=== PATIENT | male | born 1965 | race Caucasian/White ===

== ENCOUNTER 2016-09-02 09:53 | Emergency (ER) | payer SELFPAY ==
[~2016-09-02] VITALS: Ht 185.4 cm; Wt 135.2 kg
[~2016-09-02 09:53] MED LIST: AZIT250T PO; CYCL10TA2 PO; HYDR-971 PO; PRED20TA PO; PROAIR HFA8.5 GM INH
[2016-09-02] MEDS ORDERED: IPRATRPIUM/ALBUTEROL 0.5/2.5MG 3 ML NEBU. NEB ONE (10:00)
--- NOTE | 2016-09-02 10:43 | RAD ---
Portable chest, 09/02/2016: History: Chest pain Comparison is made to a study from 11/05/2015. The heart size and pulmonary vascularity are normal. No pulmonary infiltrates are seen. There is no evidence of pleural fluid. IMPRESSION: No acute cardiopulmonary abnormality is detected.
[2016-09-02 10:55] LABS: BASO # 0.1 x10^3/uL (0.0-0.2); BASO % 1 % (0-3); EOS % 3 % (0-3); HEMATOCRIT 46.2 % (39.0-53.0); HEMOGLOBIN 15.3 g/dL (13.0-17.5); LYMPH # 2.6 x10^3/uL (1.0-4.8); LYMPH % 34 % (24-48); MEAN CORPUSCULAR HEMOGLOBIN 29 pg (25-35); MEAN CORPUSCULAR HGB CONC 33 g/dL (31-37); MEAN CORPUSCULAR VOLUME 87 fL (79-100); MONO % 7 % (0-9); NEUT % 56 % (31-73); PLATELET COUNT 259 x10^3/uL (140-400); WHITE BLOOD COUNT 7.7 x10^3/uL (4.0-11.0)
[2016-09-02 10:59] LABS: CREATININE 0.8 mg/dL (0.7-1.3); GFR 102.7; POTASSIUM 4.5 mmol/L (3.5-5.1)
[2016-09-02 11:06] LABS: ALBUMIN 3.7 g/dL (3.4-5.0); DIRECT BILIRUBIN 0.1 mg/dL (0.0-0.2); TOTAL BILIRUBIN 0.6 mg/dL (0.2-1.0); TOTAL PROTEIN 6.8 g/dL (6.4-8.2)
--- NOTE | 2016-09-02 11:50 | EKG ---
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
[2016-09-02] MEDS ORDERED: PRED50TA PO (12:48)
[2016-09-02] MEDS ORDERED: PROAIR HFA8.5 GM INH (12:48)
--- NOTE | 2016-09-02 12:52 | PHYS DOC ---
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 He feels like he may have bronchitis. He denies having chest pain however he does have body aches. His been present for one week. It is nonradiating. Worse with exertion and without alleviating factors. Review of systems is negative for chest pain abd pain nausea vomiting. Negative for fevers or chills. All other review of systems is negative unless otherwise noted in history of present illness. Review of Systems Review of Systems SEE ABOVE. Current Medications Current Medications Current Medications Medications (Trade) Dose Ordered Sig/Nely Start Time Stop Time Status Last Admin Dose Admin Albuterol/ Ipratropium (Duoneb) 3 ml 1X ONCE 09/02/16 10:00 09/02/16 10:01 DC 09/02/16 10:20 3 ML Allergies Allergies Allergies Coded Allergies Type Severity Reaction Last Updated Verified No Known Drug Allergies 09/02/14 No Physical Exam Physical Exam Constitutional: Well developed, well nourished, non-toxic appearance. HENT: Normocephalic, atraumatic, bilateral external ears normal, oropharynx moist, no oral exudates, nose normal. [] Eyes: PERRLA, EOMI, conjunctiva normal, no discharge. [] Neck: Normal range of motion, no tenderness, supple, no stridor. Cardiovascular:Heart rate regular rhythm, no murmur [] Lungs & Thorax: Patient has wheezing bilaterally. Mild increased work of breathing Abdomen: Bowel sounds normal, soft, no tenderness, no masses, no pulsatile masses. [] Skin: Warm, dry, no erythema, no rash. Back: No tenderness, no CVA tenderness. [] Extremities: No tenderness, no cyanosis, no clubbing, ROM intact, no edema. [] Neurologic: Alert and oriented X 3, normal motor function, normal sensory function, no focal deficits noted. [] Psychologic: Affect normal, judgement normal, mood normal. [] Current Patient Data Vital Signs Vital Signs Date Time Temp Pulse Resp B/P Pulse Ox O2 Delivery O2 Flow Rate FiO2 09/02/16 10:21 Room Air 09/02/16 10:00 97.7 66 30 135/85 93 97.7 Lab Values Laboratory Tests Test 09/02/16 10:00 White Blood Count 7.7x10^3/uL (4.0-11.0) Red Blood Count 5.30x10^6/uL (4.30-5.70) Hemoglobin 15.3g/dL (13.0-17.5) Hematocrit 46.2% (39.0-53.0) Mean Corpuscular Volume 87fL (79-100) Mean Corpuscular Hemoglobin 29pg (25-35) Mean Corpuscular Hemoglobin Concent 33g/dL (31-37) Red Cell Distribution Width 14.0% (11.5-14.5) Platelet Count 259x10^3/uL (140-400) Neutrophils (%) (Auto) 56% (31-73) Lymphocytes (%) (Auto) 34% (24-48) Monocytes (%) (Auto) 7% (0-9) Eosinophils (%) (Auto) 3% (0-3) Basophils (%) (Auto) 1% (0-3) Neutrophils # (Auto) 4.3x10^3uL (1.8-7.7) Lymphocytes # (Auto) 2.6x10^3/uL (1.0-4.8) Monocytes # (Auto) 0.5x10^3/uL (0.0-1.1) Eosinophils # (Auto) 0.2x10^3/uL (0.0-0.7) Basophils # (Auto) 0.1x10^3/uL (0.0-0.2) Sodium Level 140mmol/L (136-145) Potassium Level 4.5mmol/L (3.5-5.1) Chloride Level 105mmol/L (98-107) Carbon Dioxide Level 28mmol/L (21-32) Anion Gap 7 (6-14) Blood Urea Nitrogen 18mg/dL (8-26) Creatinine 0.8mg/dL (0.7-1.3) Estimated GFR (Cockcroft-Gault) 102.7 Glucose Level 114mg/dL (70-99) H Calcium Level 9.0mg/dL (8.5-10.1) Total Bilirubin 0.6mg/dL (0.2-1.0) Direct Bilirubin 0.1mg/dL (0.0-0.2) Aspartate Amino Transferase (AST) 39U/L (15-37) H Alanine Aminotransferase (ALT) 49U/L (16-63) Alkaline Phosphatase 86U/L (46-116) Troponin I Quantitative < 0.017ng/mL (0.000-0.055) BG-Neg-R-Type Natriuretic Peptide 55pg/mL (0-124) Total Protein 6.8g/dL (6.4-8.2) Albumin 3.7g/dL (3.4-5.0) Lipase 216U/L (73-393) Laboratory Tests 09/02/16 10:00 Laboratory Tests 09/02/16 10:00 EKG EKG []EKG shows sinus rhythm with regular rate. Normal intervals. Normal axis. ST segments are congruent. Not suggestive of ACS. Reviewed by myself. Radiology/Procedures Radiology/Procedures [] Course & Med Decision Making Course & Med Decision Making Pertinent Labs and Imaging studies reviewed. (See chart for details) [] 51-year-old male presenting to the emergency department with wheezing for a week with a dry nonproductive cough. Vital signs unremarkable other than increased respiratory effort and respiratory rate. The patient was given DuoNeb in the emergency department and on reevaluation the patient's wheezing improved significantly. Respiratory rate came down. He is breathing comfortably on room air. Otherwise workup was unremarkable including normal CBC chemistry panel and a negative troponin. The patient was subsequent discharged home to follow up with her primary care doctor in 2 days on oral prednisone. Dragon Disclaimer Dragon Disclaimer This electronic medical record was generated, in whole or in part, using a voice recognition dictation system. Departure Departure Impression: Primary Impression: Bronchitis Disposition: 01 HOME, SELF-CARE Condition: STABLE Referrals: NO PCP (PCP) AMANDA JOHNSON MD Patient Instructions: Cough, Adult, Shortness of Breath Additional Instructions: Thank you for allowing us to participate in your care today. Followup with your primary care physician in 3 days if your symptoms do not improve. If you do not have a primary care provider you can ask for a list of our primary care providers. Return to the emergency department you have any new or concerning findings. This should be evaluated by the primary care physician and any necessary consulting services for continued management within a few days after discharge. Return to emergency room if you have any new or concerning symptoms including but not limited to fever, chills, nausea, vomiting, intractable pain, any new rashes, chest pain, shortness of air, uncontrolled bleeding, difficulty breathing, and/or vision loss. Scripts Prednisone 50 Mg [id number] Mg PO DAILY #5 TAB Prov:DEYA JOHNSON MD 09/02/16 Albuterol Sulfate (Proair Hfa Inhaler)8.5 Gm Hfa.aer.ad1 Puff INH PRN Q6HRS PRN SHORTNESS OF BREATH #1 INHALER Prov:DEYA JOHNSON MD 09/02/16 DEYA JOHNSON MD Sep 02, 2016 12:52
[2016-09-02 13:10] VITALS: BP 144/91
== END 2016-09-02 13:15 | disposition home or self-care (01) ==
LOC: ER 09:53
DX: J40 Bronchitis, not specified as acute or chronic (principal); I10 Essential (primary) hypertension; Z86.73 Personal history of transient ischemic attack (TIA), and cerebral infarction without residual deficits
CPT/HCPCS: 36415; 71010; 80048; 80076; 83690; 83880; 84484; 85027; 93005; 94250; 94640; 99285; J7620

== ENCOUNTER 2016-12-25 16:33 | Emergency (ER) | payer SELFPAY ==
[~2016-12-25] VITALS: Ht 185.4 cm; Wt 137.0 kg
[~2016-12-25 16:33] MED LIST changes: +PRED50TA PO
[2016-12-25 16:55] VITALS: BP 166/101
[2016-12-25] MEDS ORDERED: NAPROXEN 500 MG TABLET PO STA (17:26)
[2016-12-25] MEDS ORDERED: HYDROcodone/APAP 5/325MG 1 TAB TABLET PO ONE (18:00)
[2016-12-25] MEDS ORDERED: HYDR-971 PO ×2 (18:02→18:07)
--- NOTE | 2016-12-25 18:03 | PHYS DOC ---
Past Medical History Past Medical History: Bronchitis, CVA, Hypertension Additional Past Medical Histor: CVA in 2007-no residual Past Surgical History: Other Additional Past Surgical Histo: R)ring finger from table saw injury,R)index fused Alcohol Use: None Drug Use: None Adult General Chief Complaint Chief Complaint: KNEE INJURY HPI HPI Patient is a 51 year old male who presents with history of CVA, hypertension, who presents with moderate left knee pain that began this evening. Patient states he was working with his father doing some work on the floor, he states he had kneepads to protect his knee. He states in the process he developed severe knee pain. Patient denies any trauma. Review of Systems Review of Systems Constitutional: Denies fever or chills [] Eyes: Denies change in visual acuity, redness, or eye pain [] HENT: Denies nasal congestion or sore throat [] Respiratory: Denies cough or shortness of breath [] Cardiovascular: No additional information not addressed in HPI [] GI: Denies abdominal pain, nausea, vomiting, bloody stools or diarrhea [] : Denies dysuria or hematuria [] Musculoskeletal: Left knee pain Integument: Denies rash or skin lesions [] Neurologic: Denies headache, focal weakness or sensory changes [] Endocrine: Denies polyuria or polydipsia [] Current Medications Current Medications Current Medications Medications (Trade) Dose Ordered Sig/Nely Start Time Stop Time Status Last Admin Dose Admin Acetaminophen/ Hydrocodone Bitart (Lortab 5/325) 2 tab 1X ONCE 12/25/16 18:00 12/25/16 18:01 DC 12/25/16 17:42 2 TAB Naproxen (Naprosyn) 500 mg 1X STAT 12/25/16 17:26 12/25/16 17:29 DC 12/25/16 17:41 500 MG Allergies Allergies Allergies Coded Allergies Type Severity Reaction Last Updated Verified No Known Drug Allergies 09/02/14 No Physical Exam Physical Exam Constitutional: Well developed, well nourished, no acute distress, non-toxic appearance. [] HENT: Normocephalic, atraumatic, bilateral external ears normal, oropharynx moist, no oral exudates, nose normal. [] Eyes: PERRLA, EOMI, conjunctiva normal, no discharge. [] Neck: Normal range of motion, no tenderness, supple, no stridor. [] Cardiovascular:Heart rate regular rhythm, no murmur [] Lungs & Thorax: Bilateral breath sounds clear to auscultation [] Abdomen: Bowel sounds normal, soft, no tenderness, no masses, no pulsatile masses. [] Skin: Warm, dry, no erythema, no rash. [] Back: No tenderness, no CVA tenderness. [] Extremities: Left today with moderate soft tissue swelling on the anterior aspect. Patient unable to extend the left knee. He is guarding it in a flex position. +2 left pedal pulse. Cap refill less than 2 seconds left lower extremity. Neurologic: Alert and oriented X 3, normal motor function, normal sensory function, no focal deficits noted. [] Psychologic: Affect normal, judgement normal, mood normal. [] Current Patient Data Vital Signs Vital Signs Date Time Temp Pulse Resp B/P (MAP) Pulse Ox O2 Delivery O2 Flow Rate FiO2 12/25/16 17:42 18 98 Room Air 12/25/16 16:55 99.0 93 166/101 (122) 99.0 EKG EKG [] Radiology/Procedures Radiology/Procedures [] Left knee x-rays interpreted by Dr. Lorenzo was noted for probable avulsion of the left patellar tendon. Course & Med Decision Making Course & Med Decision Making Pertinent Labs and Imaging studies reviewed. (See chart for details) Patient is in the ED complaining of left knee pain that began while he was doing some work on the floor kneeling down. He states he had knee pads one. Left knee x-rays interpreted by Dr. Lorenzo was noted for probable avulsion of the left patellar tendon. Patient was placed in an immobilizer by the ED RN, neurovascular exam done by me is normal, cap refill less than 2 seconds. He was provided an orthopedic doctor to follow up with tomorrow. His blood pressure was 166/101 with a heart rate of 93. Patient states he has history of hypertension and used to take blood pressure medicine but he passed out on the medications and his primary care doctor discontinued the medications. He states he does not have medical insurance right now. We provided patient primary care doctors for follow-up and recommended he follows up for his high blood pressure as soon as he can. He has no cardiac or neurological symptoms. Dragon Disclaimer Dragon Disclaimer This electronic medical record was generated, in whole or in part, using a voice recognition dictation system. Departure Departure Impression: Primary Impression: Rupture patellar tendon Additional Impression: Hypertension Disposition: 01 HOME, SELF-CARE Condition: STABLE Referrals: NO PCP (PCP) MIRA PUGH II, MD call the provided orthopedic doctor tomorrow and set up a follow appointment. Patient Instructions: Hypertension, Knee - Patella Problems Additional Instructions: You were seen for left knee pain. Your left knee x-ray shows you have patellar tendon injury. We highly recommend you follow-up with the provided orthopedic doctor by calling the office tomorrow and set up a follow-up appointment. Follow -up with your primary care doctor or doctor from the list provided because your blood pressure is high. You may need to be put on some medicine for blood pressure. Scripts Hydrocodone/Apap 5-325 (NORCO 5-325 TABLET) 1 Each Tablet 1-2 TAB PO Q4-6HRS Y for PAIN, #40 TAB Prov: JOSE MANUEL APRN 12/25/16 Hydrocodone/Apap 5-325 (NORCO 5-325 TABLET) 1 Each Tablet 1-2 TAB PO Q4-6HRS, #20 TAB Prov: JOSE MANUEL APRN 12/25/16 Problem Qualifiers Primary Impression: Rupture patellar tendon Encounter type: initial encounter Laterality: left Qualified Codes: S86.812A - Strain of other muscle(s) and tendon(s) at lower leg level, left leg , initial encounter Additional Impression: Hypertension Hypertension type: unspecified secondary hypertension Qualified Codes: I15.9 - Secondary hypertension, unspecified JOSE MANUEL APRN Dec 25, 2016 18:03
--- NOTE | 2016-12-26 08:21 | RAD ---
Indication pain and swelling. AP oblique and lateral views of the left knee were obtained as well as a sunrise view. There is irregularity at the tibial tubercle. An avulsion injury as might be seen with a patellar tendon injury is not excluded. MRI examination of the knee should be considered. No additional bony finding seen
== END 2016-12-25 18:13 | disposition home or self-care (01) ==
LOC: ER 16:33
DX: S86.812A Strain of other muscle(s) and tendon(s) at lower leg level, left leg, initial encounter (principal); I15.9 Secondary hypertension, unspecified; Z86.73 Personal history of transient ischemic attack (TIA), and cerebral infarction without residual deficits; X58.XXXA Exposure to other specified factors, initial encounter; Y93.89 Activity, other specified; Y92.89 Other specified places as the place of occurrence of the external cause; Y99.8 Other external cause status
CPT/HCPCS: 29505; 73564; 99284-25

== ENCOUNTER 2017-04-10 10:44 | Emergency (ER) | payer SELFPAY ==
[~2017-04-10] VITALS: Ht 185.4 cm; Wt 137.0 kg
[2017-04-10 10:50] VITALS: BP 129/95
[2017-04-10] MEDS ORDERED: methylPREDNISolone SOD SUCC PF 125 MG/2 ML VIAL. IV ONE (11:15)
[2017-04-10] MEDS ORDERED: HYDROcodone/APAP 5/325MG 1 TAB TABLET PO ONE (11:15)
--- NOTE | 2017-04-10 11:19 | RAD ---
Chest, 2 views, 04/10/2017: History: Cough Comparison is made to a study from 09/02/2016. The heart size and pulmonary vascularity are normal. No pulmonary infiltrates are seen. There is no evidence of pleural fluid. IMPRESSION: No acute cardiopulmonary abnormality is detected.
[2017-04-10] MEDS ORDERED: PRED20TA PO (11:25)
[2017-04-10] MEDS ORDERED: AZIT250T PO (11:25)
[2017-04-10] MEDS ORDERED: PROAIR HFA8.5 GM INH (11:25)
--- NOTE | 2017-04-10 11:25 | PHYS DOC ---
Past Medical History Past Medical History: Bronchitis, CVA, Hypertension Additional Past Medical Histor: CVA in 2007-no residual Past Surgical History: Other Additional Past Surgical Histo: R)ring finger from table saw injury,R)index fused; R shoulder Alcohol Use: None Drug Use: None Adult General Chief Complaint Chief Complaint: COUGH HPI HPI Patient is a 51 year old male presents the ED complaining of cough 3 days. Other sick contacts at home. Associated symptoms include subjective fever, sore throat, rhinorrhea. Denies chest pain, shortness of breath, dizziness, weakness , body aches, nausea/vomiting or abdominal pain. Review of Systems Review of Systems Constitutional: Denies fever or chills [] Eyes: Denies change in visual acuity, redness, or eye pain [] HENT: Complains of nasal congestion or sore throat [] Respiratory: Complains of cough. Denies shortness of breath [] Cardiovascular: No additional information not addressed in HPI [] GI: Denies abdominal pain, nausea, vomiting, bloody stools or diarrhea [] : Denies dysuria or hematuria [] Musculoskeletal: Denies back pain or joint pain [] Integument: Denies rash or skin lesions [] Neurologic: Denies headache, focal weakness or sensory changes [] Endocrine: Denies polyuria or polydipsia [] Current Medications Current Medications Current Medications Medications (Trade) Dose Ordered Sig/Nely Start Time Stop Time Status Last Admin Dose Admin Acetaminophen/ Hydrocodone Bitart (Lortab 5/325) 1 tab 1X ONCE 04/10/17 11:15 04/10/17 11:16 DC 04/10/17 11:24 1 TAB Albuterol/ Ipratropium (Duoneb) 3 ml 1X ONCE 04/10/17 11:45 04/10/17 11:46 DC 04/10/17 11:47 3 ML Methylprednisolone Sodium Succinate (SOLU-Medrol 125MG VIAL) 125 mg 1X ONCE 04/10/17 11:30 04/10/17 11:31 DC 04/10/17 11:29 125 MG Allergies Allergies Allergies Coded Allergies Type Severity Reaction Last Updated Verified No Known Drug Allergies 09/02/14 No Physical Exam Physical Exam Constitutional: Well developed, well nourished, no acute distress, non-toxic appearance. [] HENT: Normocephalic, atraumatic, bilateral external ears normal, oropharynx moist, no oral exudates, nose normal. [] Eyes: PERRLA, EOMI, conjunctiva normal, no discharge. [] Neck: Normal range of motion, no tenderness, supple, no stridor. [] Cardiovascular:Heart rate regular rhythm, no murmur [] Lungs & Thorax: Bilateral breath sounds clear to auscultation [] Abdomen: Bowel sounds normal, soft, no tenderness, no masses, no pulsatile masses. [] Skin: Warm, dry, no erythema, no rash. [] Back: No tenderness, no CVA tenderness. [] Extremities: No tenderness, no cyanosis, no clubbing, ROM intact, no edema. [] Neurologic: Alert and oriented X 3, normal motor function, normal sensory function, no focal deficits noted. [] Psychologic: Affect normal, judgement normal, mood normal. [] Current Patient Data Vital Signs Vital Signs Date Time Temp Pulse Resp B/P (MAP) Pulse Ox O2 Delivery O2 Flow Rate FiO2 04/10/17 11:47 96 Room Air 04/10/17 11:45 78 18 04/10/17 10:50 98.1 129/95 (106) 98.1 EKG EKG [] Radiology/Procedures Radiology/Procedures PROCEDURE: CHEST PA & LATERAL Chest, 2 views, 04/10/2017: History: Cough Comparison is made to a study from 09/02/2016. The heart size and pulmonary vascularity are normal. No pulmonary infiltrates are seen. There is no evidence of pleural fluid. IMPRESSION: No acute cardiopulmonary abnormality is detected.[] Course & Med Decision Making Course & Med Decision Making Pertinent Labs and Imaging studies reviewed. (See chart for details) []Discussed imaging with patient. Patient improved after breathing treatment. Vital stable, no acute distress. Discussed follow-up with ECP this week.. Discussed reasons to return to the ED. Patient understands and agrees with plan. Dragon Disclaimer Dragon Disclaimer This electronic medical record was generated, in whole or in part, using a voice recognition dictation system. Departure Departure Impression: Primary Impression: Bronchitis Disposition: 01 HOME, SELF-CARE Condition: IMPROVED Referrals: NO PCP (PCP) EVY GRUBBS MD Patient Instructions: Bronchitis Scripts Albuterol Sulfate (PROAIR HFA INHALER) 8.5 Gm Hfa.aer.ad 1 PUFF INH PRN Q6HRS Y for SHORTNESS OF BREATH, #1 INHALER 0 Refills Prov: JULIO POWERS 04/10/17 Prednisone (PREDNISONE) 20 Mg Tablet 2 TAB PO DAILY, #10 TAB Prov: JULIO POWERS 04/10/17 Azithromycin (ZITHROMAX) 250 Mg Tablet 250 MG PO DAILY for ANTI-BIOTIC, #6 TAB 0 Refills 2 tablets today then 1 tablet daily until gone Prov: JULIO POWERS 04/10/17 JULIO POWERS Apr 10, 2017 11:25
[2017-04-10] MEDS ORDERED: methylPREDNISolone SOD SUCC PF 125 MG/2 ML VIAL. IM ONE (11:30)
[2017-04-10] MEDS ORDERED: IPRATRPIUM/ALBUTEROL 0.5/2.5MG 3 ML NEBU. NEB ONE (11:45)
== END 2017-04-10 12:07 | disposition home or self-care (01) ==
LOC: ER 10:44
DX: J40 Bronchitis, not specified as acute or chronic (principal); I10 Essential (primary) hypertension; Z86.73 Personal history of transient ischemic attack (TIA), and cerebral infarction without residual deficits
CPT/HCPCS: 71020; 94250; 94640; 96372; 99284; J2930; J7620

== ENCOUNTER → 2017-07-27 | Outpatient (CLI) | payer BC | END | disposition home or self-care (01) | LOC: KCIC 09:52 | DX: J20.9 Acute bronchitis, unspecified (principal) | CPT/HCPCS: 71046 ==

== ENCOUNTER → 2017-10-10 | Outpatient (CLI) | payer BC | END | disposition home or self-care (01) | LOC: KCIC 08:54 | DX: S33.120A Subluxation of L2/L3 lumbar vertebra, initial encounter (principal); X58.XXXA Exposure to other specified factors, initial encounter; Y93.89 Activity, other specified; Y92.89 Other specified places as the place of occurrence of the external cause; Y99.8 Other external cause status | CPT/HCPCS: 72110 ==

== ENCOUNTER 2018-04-01 07:21 | Emergency (ER) | payer BC ==
[~2018-04-01] VITALS: Ht 185.4 cm; Wt 134.3 kg
[2018-04-01 07:29] VITALS: BP 129/95
--- NOTE | 2018-04-01 08:15 | RAD ---
AP chest. HISTORY: Cough, short of air, chest pain AP view was taken of the chest. The patient's taken a poor inspiration. There is mild linear atelectasis in the right lung without other infiltrates. There is no effusion. Heart is normal in size. IMPRESSION: 1. Mild the right linear atelectasis. 2. No other infiltrates. Electronically signed by: Vimal Bansal MD (04/01/2018 8:12 AM) [facility]
[2018-04-01] MEDS ORDERED: BENZ100C PO (08:18)
[2018-04-01] MEDS ORDERED: PROAIR HFA8.5 GM INH (08:18)
--- NOTE | 2018-04-01 08:26 | PHYS DOC ---
Past Medical History Past Medical History: Bronchitis, CVA, Hypertension, Pneumonia Additional Past Medical Histor: CVA in 2006-no residual Past Surgical History: Other Additional Past Surgical Histo: R)ring finger from table saw injury,R)index fused; R shoulder Alcohol Use: None Drug Use: None Adult General Chief Complaint Chief Complaint: MULTIPLE COMPLAINTS [facility] HPI Patient is a 52 year old m with cc of sore throat cough no fever ribs hurt with coughing noted. x three days. no relief with home agents. similar to last time he had bronchitis. he would ilke note off work tomorrow. Review of Systems Review of Systems Constitutional: Denies fever or chills [] Eyes: Denies change in visual acuity, redness, or eye pain [] Cardiovascular: No additional information not addressed in HPI [] GI: Denies abdominal pain, nausea, vomiting, bloody stools or diarrhea [] Integument: Denies rash or skin lesions [] Neurologic: Denies headache, focal weakness or sensory changes [] Endocrine: Denies polyuria or polydipsia [] All other systems were reviewed and found to be within normal limits, except as documented in this note. Allergies Allergies Allergies Coded Allergies Type Severity Reaction Last Updated Verified No Known Drug Allergies 09/02/14 No Physical Exam Physical Exam Constitutional: Well developed, well nourished, no acute distress, non-toxic appearance. [] HENT: Normocephalic, atraumatic, bilateral external ears normal, oropharynx moist, no oral exudates, nose normal. [] Eyes: PERRLA, EOMI, conjunctiva normal, no discharge. [] Neck: Normal range of motion, no tenderness, supple, no stridor. [] Cardiovascular:Heart rate regular rhythm, no murmur [] Lungs & Thorax: reactive cough no overt wheezing Abdomen: Bowel sounds normal, soft, no tenderness, no masses, no pulsatile masses. [] Skin: Warm, dry, no erythema, no rash. [] Back: No tenderness, no CVA tenderness. [] Extremities: No tenderness, no cyanosis, no clubbing, ROM intact, no edema. [] Neurologic: Alert and oriented X 3, normal motor function, normal sensory function, no focal deficits noted. [] Psychologic: Affect normal, judgement normal, mood normal. [] Current Patient Data Vital Signs Vital Signs Date Time Temp Pulse Resp B/P (MAP) Pulse Ox O2 Delivery O2 Flow Rate FiO2 04/01/18 07:29 98.3 64 20 129/95 (106) 97 Room Air 98.3 EKG EKG [] Radiology/Procedures Radiology/Procedures [] Impressions: my interpretation negative acute. poor inspiration Course & Med Decision Making Course & Med Decision Making Pertinent Labs and Imaging studies reviewed. (See chart for details) sore throat cough reactive cough cxr negative. vitals normal suspect bronchitis 3 day duration tx albuterol tessalon. Dragon Disclaimer Dragon Disclaimer This electronic medical record was generated, in whole or in part, using a voice recognition dictation system. Departure Departure Impression: Primary Impression: Bronchitis Disposition: HOME, SELF-CARE Condition: IMPROVED Referrals: LEXX SEALS MD (PCP) Patient Instructions: Bronchitis, [id number] Scripts Albuterol Sulfate (PROAIR HFA INHALER) 8.5 Gm Hfa.aer.ad 1 PUFF INH PRN Q6HRS PRN for SHORTNESS OF BREATH, #1 INHALER 0 Refills Prov: JASSI WHITLEY MD 04/01/18 Benzonatate (TESSALON PERLE) 100 Mg Capsule 1 CAP PO TID PRN for COUGH, #21 CAP Prov: JASSI WHITLEY MD 04/01/18 JASSI WHITLEY MD Apr 01, 2018 08:26
== END 2018-04-01 08:23 | disposition home or self-care (01) ==
LOC: ER 07:21
DX: J40 Bronchitis, not specified as acute or chronic (principal); I10 Essential (primary) hypertension; Z86.73 Personal history of transient ischemic attack (TIA), and cerebral infarction without residual deficits
CPT/HCPCS: 71045; 99283

== ENCOUNTER → 2018-08-29 | Outpatient (CLI) | payer BC ==
[~2018-08-29] MED LIST changes: +ALBU2.5V8 INH; +BENZ100C PO; +CODE10LI PO; +HYDR-3164 PO; -HYDR-971 PO; -PROAIR HFA8.5 GM INH
--- NOTE | 2018-08-29 15:48 | RAD ---
Examination: Ultrasound testis HISTORY: History of left testicular pain, swelling COMPARISON: None available FINDINGS: The right testis measures 4.9 x 2.2 x 2.5 cm. The left testis measures 4.9 x 2.8 x 2.4 cm. Varicocele identified inferior lateral to the left testis. Blood flow identified in the right and left testis. Tiny bilateral hydrocele. IMPRESSION: 1. Varicocele identified inferior lateral to the left testis. Electronically signed by: Eulalio Lang MD (08/29/2018 3:45 PM) [place] [id number]
== END | disposition home or self-care (01) ==
LOC: US 14:03
PROVIDERS: ATTEND Physician Assistant Medical
DX: N45.2 Orchitis (principal); I86.1 Scrotal varices; N43.3 Hydrocele, unspecified
CPT/HCPCS: 76870

== ENCOUNTER 2018-10-13 19:47 | Emergency (ER) | payer BC ==
[~2018-10-13] VITALS: Ht 185.4 cm; Wt 136.1 kg
[~2018-10-13 19:47] MED LIST changes: -CODE10LI PO
[2018-10-13] MEDS ORDERED: IPRATRPIUM/ALBUTEROL 0.5/2.5MG 3 ML NEBU. NEB ONE (20:30)
--- NOTE | 2018-10-13 20:33 | PHYS DOC ---
Past Medical History Past Medical History: Bronchitis, CVA, Hypertension, Pneumonia Additional Past Medical Histor: CVA in 2007-no residual Past Surgical History: Other Additional Past Surgical Histo: R)ring finger from table saw injury,R)index fused; R shoulder Alcohol Use: None Drug Use: None Adult General Chief Complaint Chief Complaint: COUGH HPI HPI Patient is a 53 year old male who presents with a headache, a cough, a sore throat, and nasal congestion. Patient states that he has had a constant headache for the past three days which he describes as a throbbing sensation located in his bilateral temporal regions. Patient states that light makes his headache worse and nothing makes it better. Patient currently rates his headache to be 5/10. Patient also reports nausea and nonbilious, nonbloody vomiting for the past few days, but none today. Patient reports a nonproductive cough, nasal congestion, sinus pressure located around his eyes, a sore throat, and a hoarse voice for the past five days. Patient notes that he has been experiencing chest pain and shortness of breath with coughing. Patient did not receive the influenza vaccination this season. Review of Systems Review of Systems Constitutional: Denies fever or chills Eyes: Denies change in visual acuity or redness HENT: Reports nasal congestion and sore throat Respiratory: Denies cough or shortness of breath [] Cardiovascular: No additional information not addressed in HPI [] GI: Denies abdominal pain, nausea, vomiting, bloody stools or diarrhea [] : Denies dysuria or hematuria [] Musculoskeletal: Denies back pain or joint pain [] Integument: Denies rash or skin lesions [] Neurologic: Denies headache, focal weakness or sensory changes [] Endocrine: Denies polyuria or polydipsia [] All other systems were reviewed and found to be within normal limits, except as documented in this note. Current Medications Current Medications Current Medications Medications (Trade) Dose Ordered Sig/Nely Start Time Stop Time Status Last Admin Dose Admin Albuterol/ Ipratropium (Duoneb) 3 ml 1X ONCE 10/13/18 20:30 10/13/18 20:39 DC 10/13/18 20:51 3 ML Dexamethasone Sodium Phosphate (Decadron) 10 mg 1X ONCE 10/13/18 20:45 10/13/18 20:46 DC 10/13/18 20:45 10 MG Ketorolac Tromethamine (Toradol 15mg Vial) 15 mg 1X ONCE 10/13/18 20:45 10/13/18 20:46 DC 10/13/18 20:45 15 MG Ondansetron HCl (Zofran) 4 mg 1X ONCE 10/13/18 20:45 10/13/18 20:46 DC 10/13/18 21:20 4 MG Sodium Chloride 1,000 ml @ 1,000 mls/hr 1X ONCE 10/13/18 20:45 10/13/18 21:44 DC 10/13/18 20:45 1,000 MLS/HR Allergies Allergies Allergies Coded Allergies Type Severity Reaction Last Updated Verified No Known Drug Allergies 09/02/14 No Physical Exam Physical Exam Constitutional: Well developed, well nourished, no acute distress, non-toxic appearance. [] HENT: Normocephalic, atraumatic, bilateral external ears normal, oropharynx moist, no oral exudates, nose normal. [] Eyes: PERRLA, EOMI, conjunctiva normal, no discharge. [] Neck: Normal range of motion, no tenderness, supple, no stridor. [] Cardiovascular:Heart rate regular rhythm, no murmur [] Lungs & Thorax: Bilateral breath sounds clear to auscultation [] Abdomen: Bowel sounds normal, soft, no tenderness, no masses, no pulsatile masses. [] Skin: Warm, dry, no erythema, no rash. [] Back: No tenderness, no CVA tenderness. [] Extremities: No tenderness, no cyanosis, no clubbing, ROM intact, no edema. [] Neurologic: Alert and oriented X 3, normal motor function, normal sensory function, no focal deficits noted. [] Psychologic: Affect normal, judgement normal, mood normal. [] Current Patient Data Vital Signs Vital Signs Date Time Temp Pulse Resp B/P (MAP) Pulse Ox O2 Delivery O2 Flow Rate FiO2 10/13/18 22:39 60 22 125/77 (93) 96 Room Air 10/13/18 20:15 98.2 98.2 Lab Values Laboratory Tests Test 10/13/18 20:57 10/13/18 21:08 Influenza Type A Antigen Negative (NEGATIVE) Influenza Type B Antigen Negative (NEGATIVE) White Blood Count 8.9 x10^3/uL (4.0-11.0) Red Blood Count 5.08 x10^6/uL (4.30-5.70) Hemoglobin 14.9 g/dL (13.0-17.5) Hematocrit 44.7 % (39.0-53.0) Mean Corpuscular Volume 88 fL (79-100) Mean Corpuscular Hemoglobin 29 pg (25-35) Mean Corpuscular Hemoglobin Concent 33 g/dL (31-37) Red Cell Distribution Width 14.4 % (11.5-14.5) Platelet Count 255 x10^3/uL (140-400) Neutrophils (%) (Auto) 58 % (31-73) Lymphocytes (%) (Auto) 32 % (24-48) Monocytes (%) (Auto) 8 % (0-9) Eosinophils (%) (Auto) 2 % (0-3) Basophils (%) (Auto) 1 % (0-3) Neutrophils # (Auto) 5.1 x10^3uL (1.8-7.7) Lymphocytes # (Auto) 2.9 x10^3/uL (1.0-4.8) Monocytes # (Auto) 0.7 x10^3/uL (0.0-1.1) Eosinophils # (Auto) 0.2 x10^3/uL (0.0-0.7) Basophils # (Auto) 0.1 x10^3/uL (0.0-0.2) Sodium Level 140 mmol/L (136-145) Potassium Level 4.0 mmol/L (3.5-5.1) Chloride Level 106 mmol/L (98-107) Carbon Dioxide Level 25 mmol/L (21-32) Anion Gap 9 (6-14) Blood Urea Nitrogen 15 mg/dL (8-26) Creatinine 0.8 mg/dL (0.7-1.3) Estimated GFR (Cockcroft-Gault) 101.9 BUN/Creatinine Ratio 19 (6-20) Glucose Level 107 mg/dL (70-99) H Lactic Acid Level 1.2 mmol/L (0.4-2.0) Calcium Level 8.5 mg/dL (8.5-10.1) Magnesium Level 2.1 mg/dL (1.8-2.4) Total Bilirubin 0.3 mg/dL (0.2-1.0) Aspartate Amino Transferase (AST) 28 U/L (15-37) Alanine Aminotransferase (ALT) 47 U/L (16-63) Alkaline Phosphatase 97 U/L (46-116) Creatine Kinase 222 U/L (39-308) Creatine Kinase MB (Mass) 2.8 ng/mL (0.0-3.6) Creatine Kinase MB Relative Index 1.3 % (0-4) Troponin I Quantitative < 0.017 ng/mL (0.000-0.055) UZ-Qbs-A-Type Natriuretic Peptide 61 pg/mL (0-124) Total Protein 7.1 g/dL (6.4-8.2) Albumin 3.5 g/dL (3.4-5.0) Albumin/Globulin Ratio 1.0 (1.0-1.7) Laboratory Tests 10/13/18 21:08 Laboratory Tests 10/13/18 21:08 EKG EKG @2107 NSR at 73bpm, NO ST elevation, Q wave in I and aVL. Radiology/Procedures Radiology/Procedures PROCEDURE: CHEST PA & LATERAL Chest, PA and Lateral: Technique: PA and lateral views of the chest were obtained. History: Dyspnea, cough 07/27/2017. Comparison: None. Findings: The heart and pulmonary vasculature appear within normal limits. The lungs are clear. The pleural margins are clear. Impression: No acute chest process is seen. Electronically signed by: Eulalio Lang MD (10/13/2018 9:06 PM) [facility] [id number] Course & Med Decision Making Course & Med Decision Making Patient is a 53 year old male who presents for evaluation of a headache, nausea , nonproductive cough, and a sore throat. Pertinent Labs and Imaging studies reviewed. (See chart for details). Patient treated in the ED with 1L Normal Saline, a Duoneb, 10mg Dexamethasone, 15mg Ketorolac, and 4mg Ondansetron. Influenza is negative. No acute abnormalities noted on laboratory results. CXR does not reveal any acute process. Patient stable for discharge with outpatient follow-up with PCP. Discussed findings and plan with patient and family, who acknowledge understanding and agreement. Dragon Disclaimer Dragon Disclaimer This electronic medical record was generated, in whole or in part, using a voice recognition dictation system. Departure Departure Impression: Primary Impression: Bronchitis Disposition: HOME, SELF-CARE Condition: STABLE Referrals: LEXX SEALS MD (PCP) Patient Instructions: Acute Bronchitis, [id number] Scripts Codeine Phosphate/Guaifenesin (Guaifen-Codeine 200-20 mg/10Ml) 10 Ml Liquid 10 ML PO TID PRN PRN for COUGH, #100 LIQUID Prov: EVY SAGE DO 10/13/18 Prednisone (PREDNISONE) 20 Mg Tablet 2 TAB PO DAILY, #8 TAB Start this prescription tomorrow, Monday10/14/18 Prov: EVY SAGE DO 10/13/18 Albuterol Sulfate (Proair Hfa) 8.5 Gm Hfa.aer.ad 1 PUFF INH PRN Q6HRS PRN for WHEEZING, #1 INHALER Prov: EVY SAGE DO 10/13/18 EVY SAGE DO Oct 13, 2018 20:33
[2018-10-13] MEDS ORDERED: IV NORMAL SALINE 1000ML BAG 1,000 ML IV ONE (20:45)
[2018-10-13] MEDS ORDERED: ONDANSETRON PF 4 MG/2 ML VIAL. IV ONE (20:45)
[2018-10-13] MEDS ORDERED: DEXAMETHASONE SOD PHOS 20 MG/5 ML VIAL. IV ONE (20:45)
[2018-10-13] MEDS ORDERED: KETOROLAC 15 MG/ML VIAL. IV ONE (20:45)
--- NOTE | 2018-10-13 21:09 | RAD ---
Chest, PA and Lateral: Technique: PA and lateral views of the chest were obtained. History: Dyspnea, cough 07/27/2017. Comparison: None. Findings: The heart and pulmonary vasculature appear within normal limits. The lungs are clear. The pleural margins are clear. Impression: No acute chest process is seen. Electronically signed by: Eulalio Lang MD (10/13/2018 9:06 PM) [facility]
[2018-10-13 21:17] LABS: BASO # 0.1 x10^3/uL (0.0-0.2); BASO % 1 % (0-3); EOS # 0.2 x10^3/uL (0.0-0.7); EOS % 2 % (0-3); HEMATOCRIT 44.7 % (39.0-53.0); HEMOGLOBIN 14.9 g/dL (13.0-17.5); LYMPH # 2.9 x10^3/uL (1.0-4.8); LYMPH % 32 % (24-48); MEAN CORPUSCULAR HEMOGLOBIN 29 pg (25-35); MEAN CORPUSCULAR HGB CONC 33 g/dL (31-37); MEAN CORPUSCULAR VOLUME 88 fL (79-100); MONO # 0.7 x10^3/uL (0.0-1.1); MONO % 8 % (0-9); NEUT # 5.1 x10^3uL (1.8-7.7); NEUT % 58 % (31-73); PLATELET COUNT 255 x10^3/uL (140-400); RED BLOOD COUNT 5.08 x10^6/uL (4.30-5.70); RED CELL DISTRIBUTION WIDTH 14.4 % (11.5-14.5); WHITE BLOOD COUNT 8.9 x10^3/uL (4.0-11.0)
[2018-10-13 21:29] LABS: CALCIUM 8.5 mg/dL (8.5-10.1); CREATININE 0.8 mg/dL (0.7-1.3); GFR 101.9
[2018-10-13 21:35] LABS: ALBUMIN 3.5 g/dL (3.4-5.0); MAGNESIUM 2.1 mg/dL (1.8-2.4); TOTAL BILIRUBIN 0.3 mg/dL (0.2-1.0); TOTAL PROTEIN 7.1 g/dL (6.4-8.2)
[2018-10-13 21:40] LABS: INFLUENZA A PATIENT NEGATIVE (NEGATIVE); INFLUENZA B PATIENT NEGATIVE (NEGATIVE)
[2018-10-13] MEDS ORDERED: PRED20TA PO (22:07)
[2018-10-13] MEDS ORDERED: ALBU2.5V8 INH (22:07)
[2018-10-13] MEDS ORDERED: CODE10LI PO (22:25)
[2018-10-13 22:39] VITALS: BP 125/77
--- NOTE | 2018-10-14 08:28 | EKG ---
[facility] [address] [place] [address] Test Date: 2018-10-13 Test Time: 21:07:20 Pat Name: WALKER ANTOINE Department: Room: Gender: Male Team Leader Surgery: ELINA WALKER : 1965 Requested By: EVY SAGE Order Number: [id number] Reading MD: Saeid Coffey MD Measurements Intervals [place] Rate: 73 P: 29 CT: 164 QRS: 7 QRSD: 90 T: 17 QT: 382 QTc: 424 Interpretive Statements SINUS RHYTHM Electronically Signed On 10-15-2018 9:55:09 CDT by Saeid Coffey MD
== END 2018-10-13 22:39 | disposition home or self-care (01) ==
LOC: ER 19:47
DX: J40 Bronchitis, not specified as acute or chronic (principal); R51 Headache; I10 Essential (primary) hypertension; Z86.73 Personal history of transient ischemic attack (TIA), and cerebral infarction without residual deficits
CPT/HCPCS: 36415; 71046; 80053; 82553; 83605; 83735; 83880; 84484; 85025; 87804; 93005; 94640; 99284; J1100; J1885; J2405; J7030; J7620

== ENCOUNTER 2019-07-25 12:21 | Emergency (ER) | payer BC ==
[~2019-07-25] VITALS: Ht 185.4 cm; Wt 138.3 kg
[~2019-07-25 12:21] MED LIST changes: +CODE10LI PO
--- NOTE | 2019-07-25 13:58 | PHYS DOC ---
Past Medical History Past Medical History: Bronchitis, CVA, Hypertension, Pneumonia Additional Past Medical Histor: CVA in 2007-no residual Past Surgical History: Other Additional Past Surgical Histo: R)ring finger from table saw injury,R)index fused; R shoulder Alcohol Use: None Drug Use: None Adult General Chief Complaint Chief Complaint: KNEE INJURY HPI HPI Patient is a 53 year old [male] who presents with [left knee pain and swelling for the past 4 days. States he has no known trauma to his leg, states he has been walking on it, however has had a limp. States he has not taken any medication, reports he has discomfort when he tries to walk, but having minimal discomfort when he is resting. Reports he has also noticed he has had some increased venous prominence to left anterior leg near knee with a bruise that has started since his discomfort] Review of Systems Review of Systems Constitutional: Denies fever or chills [] Eyes: Denies change in visual acuity, redness, or eye pain [] HENT: Denies nasal congestion or sore throat [] Respiratory: Denies cough or shortness of breath does report he dizziness primary care office prior for URI symptoms. Reports his breathing feels better now [] Cardiovascular: No additional information not addressed in HPI [] GI: Denies abdominal pain, nausea, vomiting, bloody stools or diarrhea [] : Denies dysuria or hematuria [] Musculoskeletal: Denies back pain or joint pain complains of pain to his left knee, left hip. [] Integument: Denies rash or skin lesions other than left knee bruise [] Neurologic: Denies headache, focal weakness or sensory changes [] Endocrine: Denies polyuria or polydipsia [] All other systems were reviewed and found to be within normal limits, except as documented in this note. Allergies Allergies Allergies Coded Allergies Type Severity Reaction Last Updated Verified No Known Drug Allergies 09/02/14 No Physical Exam Physical Exam Constitutional: Well developed, well nourished, no acute distress, non-toxic appearance. [] Cardiovascular:Heart rate regular rhythm, no murmur [] Lungs & Thorax: Bilateral breath sounds clear to auscultation [] Skin: Warm, dry, no erythema, no rash. There is noted to left leg, superior to the knee, approximately 3cm diameter bruise[] Back: No tenderness, no CVA tenderness. [] Extremities: No tenderness, no cyanosis, no clubbing, ROM intact, no edema. No palpable cords noted to lower sternum, however superficial veins noted more prominent to left leg, near bruise. Tenderness noted on palpation of this area. Full range of motion to hip, knee, however noted discomfort come to move and rotate hip. [] Neurologic: Alert and oriented X 3, normal motor function, normal sensory function, no focal deficits noted. [] Psychologic: Affect normal, judgement normal, mood normal. [] Current Patient Data Vital Signs Vital Signs Date Time Temp Pulse Resp B/P (MAP) Pulse Ox O2 Delivery O2 Flow Rate FiO2 07/25/19 13:30 98.4 80 16 200/96 (130) 97 Room Air 98.4 EKG EKG [] Radiology/Procedures Radiology/Procedures FINDINGS: A frontal view the pelvis and frontal and frog-leg views of the left hip are obtained. There is no fracture, dislocation or subluxation. 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 IMPRESSION: No acute osseous finding. Electronically signed by: She Acevedo MD (07/25/2019 2:44 PM) [facility] FINDINGS: The osseous structures are intact. The articular surfaces are smooth. The joint space is maintained. No intra-articular loose bodies. The alignment is within normal limits. Soft tissues show ossification and fragmentation around the tibial tuberosity with associated mild soft tissue thickening. No obvious joint effusion. No radio-opaque foreign bodies are identified. IMPRESSION: Radiographic findings compatible with chronic patellar tendinopathy (Malabar-Schlatter's disease). No acute findings otherwise noted. Electronically signed by: Davis Padilla MD (07/25/2019 3:09 PM) [facility] Findings: There is no sonographic evidence of deep venous thrombosis involving the visualized deep venous structures of the left lower extremity Impression: No evidence of deep venous thrombosis involving the left lower extremity Electronically signed by: Jonnie Amaya MD (07/25/2019 2:15 PM) [facility] Course & Med Decision Making Course & Med Decision Making Pertinent Labs and Imaging studies reviewed. (See chart for details) Reviewed imaging results with patient, with no acute findings or findings of DVT. Discussed use of kody wrap. Patient has PCP appointment tomorrow, discussed further evaluation at that time with PCP to consider further testing if needed. Patient with no further questions or concerns, in agreement with plan of care[] Dragon Disclaimer Dragon Disclaimer This electronic medical record was generated, in whole or in part, using a voice recognition dictation system. Departure Departure Impression: Primary Impression: Left leg pain Disposition: HOME, SELF-CARE Condition: STABLE Referrals: ANICETO MAY MD (PCP) Patient Instructions: Knee Pain Additional Instructions: As discussed, use the Kody wrap on your knee to give some additional support. He may take Tylenol or ibuprofen for discomfort. Keep her follow-up appointment with your primary care provider tomorrow as he previously scheduled. JULIO LOZANO APRN Jul 25, 2019 13:58
--- NOTE | 2019-07-25 14:18 | RAD ---
Left lower extremity venous duplex study Clinical History: Lower extremity pain, edema Technique: Using a combination of real time ultrasound imaging and color-flow and pulse Doppler imaging techniques, including spectral analysis, graded compression and augmentation, duplex evaluation of the deep venous system of the left lower extremity was performed. Multiple images were obtained. Findings: There is no sonographic evidence of deep venous thrombosis involving the visualized deep venous structures of the left lower extremity Impression: No evidence of deep venous thrombosis involving the left lower extremity Electronically signed by: Jonnie Amaya MD (07/25/2019 2:15 PM) [facility]
--- NOTE | 2019-07-25 14:47 | RAD ---
EXAM: Pelvis and left hip, 3 views HISTORY: Pain. COMPARISON: None. FINDINGS: A frontal view the pelvis and frontal and frog-leg views of the left hip are obtained. There is no fracture, dislocation or subluxation. 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 IMPRESSION: No acute osseous finding. Electronically signed by: She Acevedo MD (07/25/2019 2:44 PM) [facility]
--- NOTE | 2019-07-25 15:12 | RAD ---
PROCEDURE: KNEE LEFT 4V STUDY DATE: 07/25/2019 CLINICAL INDICATION / HISTORY: Pain and swelling from a fall 2 weeks ago.. TECHNIQUE: AP, lateral, and oblique views of the left knee. COMPARISON: None FINDINGS: The osseous structures are intact. The articular surfaces are smooth. The joint space is maintained. No intra-articular loose bodies. The alignment is within normal limits. Soft tissues show ossification and fragmentation around the tibial tuberosity with associated mild soft tissue thickening. No obvious joint effusion. No radio-opaque foreign bodies are identified. IMPRESSION: Radiographic findings compatible with chronic patellar tendinopathy (Anselmo-Schlatter's disease). No acute findings otherwise noted. Electronically signed by: Davis Padilla MD (07/25/2019 3:09 PM) [facility]
[2019-07-25 16:00] VITALS: BP 160/108
== END 2019-07-25 16:00 | disposition home or self-care (01) ==
LOC: ER 12:21
DX: M25.562 Pain in left knee (principal); M25.851 Other specified joint disorders, right hip; R42 Dizziness and giddiness; R60.9 Edema, unspecified; R00.2 Palpitations; I63.89 Other cerebral infarction; I10 Essential (primary) hypertension; Z98.890 Other specified postprocedural states
CPT/HCPCS: 73502; 73564; 93971; 99284

== ENCOUNTER → 2020-01-03 | Outpatient (CLI) | payer BC ==
--- NOTE | 2020-01-03 12:48 | KCIC ---
EXAMINATION: LOWER EXT JOINT WO RT INDICATIONS: Right knee pain for 3 weeks. Knee struck trailer gate, swelling. TECHNIQUE: Multiplanar multisequence MRI of the right knee was obtained without contrast. COMPARISON: Right knee radiograph 07/25/2019 FINDINGS: MENISCI: There is a horizontal tear of the posterior horn and body medial meniscus extending to the undersurface. The lateral meniscus is intact. LIGAMENTS: The anterior and posterior cruciate ligaments are intact. The medial collateral ligament and lateral collateral ligament complex including popliteus tendon and iliotibial band are intact. EXTENSOR MECHANISM: The quadriceps and patellar tendons are intact. Fat pads are normal. Retinacula are intact. BONES AND CARTILAGE: No acute fracture. Marrow signal is normal. Mild cartilage heterogeneity along the lateral patellar facet without discrete defect. Trochlear cartilage is intact. Medial and lateral compartment cartilage is intact. OTHER: Large joint effusion. No Mendenhall cyst. Muscles are normal. Mild prepatellar and infrapatellar bursitis. IMPRESSION: 1. Horizontal tear of the posterior horn and body medial meniscus surfacing inferiorly. 2. Large joint effusion. Mild prepatellar and infrapatellar bursitis. Electronically signed by: Yecenia Michelle MD (01/03/2020 12:45 PM) [id number]
== END | disposition home or self-care (01) ==
LOC: KCIC MRI 10:29
PROVIDERS: ATTEND Family Medicine
DX: S83.241A Other tear of medial meniscus, current injury, right knee, initial encounter (principal); M70.41 Prepatellar bursitis, right knee; M25.461 Effusion, right knee; X58.XXXA Exposure to other specified factors, initial encounter; Y93.89 Activity, other specified; Y92.89 Other specified places as the place of occurrence of the external cause; Y99.8 Other external cause status
CPT/HCPCS: 73721

== ENCOUNTER 2021-02-27 14:24 | Emergency (ER) | payer BC, OTHER ==
[~2021-02-27] VITALS: Ht 185.4 cm; Wt 136.6 kg
[2021-02-27] MEDS ORDERED: DEXAMETHASONE 4 MG TABLET PO ONE (15:15)
--- NOTE | 2021-02-27 15:27 | RAD ---
XR CHEST 1V History: Reason: cough / Spl. Instructions: / History: Comparison: None. Findings: Mild ill-defined bibasilar opacities. No pleural effusion. No pneumothorax. Normal heart size. Impression: 1. Mild bilateral basilar ill-defined opacities, may represent atelectasis or developing infiltrates . Electronically signed by: Chato Mcpherson DO (02/27/2021 3:25 PM) [id number]
--- NOTE | 2021-02-27 15:42 | PHYS DOC ---
Past Medical History Past Medical History: Bronchitis, CVA, Hypertension, Pneumonia Additional Past Medical Histor: CVA in 2007-no residual Past Surgical History: Knee Replacement, Other Additional Past Surgical Histo: R)ring finger from table saw injury,R)index fused; R shoulder Smoking Status: Never Smoker Alcohol Use: None Drug Use: None General Adult EDM: Chief Complaint: COUGH HPI: HPI: 55-year-old male past medical history of hypertension, hyperlipidemia, CVA w/no residual deficits and former tobacco dependence, presents to the ED with complaints of dry cough with bilateral upper chest pain that only occurs with respirations, symptoms started 6 days ago. Patient was seen 2 days ago by his primary care physician, had a negative rapid Covid test. Was started on pre dnisone 50 mg and doxycycline. Pt states " I thought I would at least get an x- ray." Received his Laith & Laith vaccine more than 1 month ago. Review of Systems: Review of Systems: Constitutional: Denies fever or chills. [] Eyes: Denies change in visual acuity. [] HENT: Denies nasal congestion or sore throat. [] Respiratory: Denies hemoptysis or shortness of breath. [] Cardiovascular: Denies syncope or lower extremity edema. [] GI: Denies al pain, nausea, vomiting, or diarrhea. [] Musculoskeletal: Denies back pain or joint pain. [] Integument: Denies rash or diaphoresis Neurologic: Denies headache, focal weakness or sensory changes. [] Endocrine: Denies polyuria or polydipsia. [] Lymphatic: Denies swollen glands. [] Psychiatric: Denies depression or anxiety. [] Heart Score: C/O Chest Pain: Yes HEART Score for Chest Pain: HEART Score for Chest Pain Response (Comments) Value History Slighlty/Non-Suspicious 0 ECG Normal 0 Age >45 - < 65 1 Risk Factors >3 Risk Factors or Hx CAD 2 Troponin < Normal Limit 0 Total 3 Risk Factors: Risk Factors: DM, Current or recent (<one month) smoker, HTN, HLP, family history of CAD, obesity. Risk Scores: Score 0 - 3: 2.5% MACE over next 6 weeks - Discharge Home Score 4 - 6: 20.3% MACE over next 6 weeks - Admit for Clinical Observation Score 7 - 10: 72.7% MACE over next 6 weeks - Early Invasive Strategies Current Medications: Current Medications Medications (Trade) Dose Ordered Sig/Nely Start Time Stop Time Status Last Admin Dose Admin Dexamethasone (Decadron) 10 mg 1X ONCE 02/27/21 15:15 02/27/21 15:16 DC 02/27/21 15:26 10 MG Allergies: Allergies: Allergies Coded Allergies Type Severity Reaction Last Updated Verified No Known Drug Allergies 09/02/14 No Physical Exam: PE: Constitutional: Well developed, well nourished, no acute distress, non-toxic appearance. HENT: Normocephalic, atraumatic, Eyes: EOMI, conjunctiva normal, no discharge. Neck: Normal range of motion, supple, Cardiovascular: S1/2 present, regular rhythm Lungs & Thorax: Speaking in full sentences, bilateral equal chest rise, no tachypnea or increased work of breathing Abdomen: soft, no tenderness, Skin: Warm, dry, no erythema, no rash. [] Back: No tenderness, no CVA tenderness. [] Extremities: No tenderness, no cyanosis, no unilateral lower extremity edema Neurologic: Alert and oriented X 3, normal motor function, normal sensory function, no focal deficits noted. [] Psychologic: Affect normal, judgement normal, mood normal. [] Current Patient Data: Vital Signs: Vital Signs Date Time Temp Pulse Resp B/P (MAP) Pulse Ox O2 Delivery O2 Flow Rate FiO2 02/27/21 14:51 98.4 86 22 149/80 (125) 95 Room Air 98.4 EKG: EKG: Sinus rhythm 80 bpm, no axis deviation, normal intervals, no T wave inversions, no ST elevations or ST depressions Radiology/Procedures: Radiology/Procedures: IMAGING REPORT Signed PATIENT: WALKER ANTOINE ACCOUNT: [id number] : 1965 LOCATION: ER AGE: 55 SEX: M EXAM STATUS: REG ER ORD. PHYSICIAN: ERIN CONKLIN DO REASON: cough PROCEDURE: CHEST AP ONLY XR CHEST 1V History: Reason: cough / Spl. Instructions: / History: Comparison: None. Findings: Mild ill-defined bibasilar opacities. No pleural effusion. No pneumothorax. Normal heart size. Impression: 1. Mild bilateral basilar ill-defined opacities, may represent atelectasis or developing infiltrates. Electronically signed by: Chato Mcpherson DO (02/27/2021 3:25 PM) [id number] DICTATED and SIGNED BY: CHATO MCPHERSON DO DATE: 02/27/21 [id number] Course & Med Decision Making: Course & Med Decision Making Pertinent Labs and Imaging studies reviewed. (See chart for details) COVID-19 CRITERIA: The patient was evaluated during the global COVID-19 pandemic, and that diagnosis was suspected/considered upon their initial presentation. Their evaluation, treatment and testing was consistent with current guidelines for patients who present with complaints or symptoms that may be related to COVID-19. Consider for URI/viral, possile bacterial pneumonia, Covid test pending, already on prednisone and antibiotics. Will prescribe Tessalon Perle for cough and an albuterol inhaler. Will discharge home with strict ED return precautions were given for neurologic deficits, dyspnea, chest pain, leg swelling or syncope. Encouraged urgent outpatient follow-up with PMD and pulmonology for formal diagnosis of copd. Life-threatening processes were considered but are low suspicion at this time, given history, physical exam and ED workup. Pt was ed ucated on all prescription medications and adverse effects. All patient's questions were answered and pt was stable at time of discharge. Life/limb-threatening differential includes but is not limited to, foreign body, infection/sepsis, congestive heart failure or pulmonary edema, lung cancer intrathoracic mass, bronchoconstriction, asthma/COPD/lung disease exacerbation, pneumothorax or hemothorax, pulmonary emboli, autoimmune/neurologic disease or toxidrome. I have spoken with the patient and/or caregivers. I explained the patient's condition, diagnoses and treatment plan based on the information available to me at this time. I have answered the patient and/or caregiver's questions and addressed any concerns. The patient and/or caregivers have a good understanding of patient's diagnosis, condition and treatment plan as can be expected at this point. Vital signs have been stable. Patient's condition is stable and appropriate for discharge from the emergency department. Patient will pursue further outpatient evaluation with primary care physician or other designated or consulting physician as outlined in the discharge instructions. The patient and/or caregivers are agreeable to this plan of care and follow-up instructions have been explained in detail. The patient and/or caregivers have received these instructions in written form and have expressed an understanding of the discharge instructions. The patient and/or caregivers are aware that any significant change of condition or worsening of symptoms should prompt immediate return to this or the closest emergency department or call to 911. Fernanda Disclaimer: Fernanda Disclaimer: This electronic medical record was generated, in whole or in part, using a voice recognition dictation system. Departure Departure Impression: Primary Impression: Person under investigation for COVID-19 Additional Impressions: Cough Pneumonia Disposition: HOME / SELF CARE / HOMELESS Condition: STABLE Referrals: ANICETO MAY MD (PCP) Follow-up with your primary care physician in 24 to 48 hours OR FOLLOW UP WITH FAMILY MEDICINE: [address], [address] [place] [address] Patient Instructions: Cough, Adult, Pneumonia, Adult Additional Instructions: FOLLOW UP WITH PULMONOLOGY: FOR DEFINITIVE MANAGEMENT [facility] [address] [place] [address] Return to ED immediately if your oxygen level drops below 90% (purchase a pulse oximetry at a medical supply store), difficulties breathing including rapid breathing or increased work of breathing (skin sucking under ribs), chest pain or stroke-like symptoms (facial droop, speech changes, arm/leg weakness). EMERGENCY DEPARTMENT GENERAL DISCHARGE INSTRUCTIONS Thank you for coming to [facility] Emergency Department (ED) today and trusting us with you care. We trust that you had a positive experience in our Emergency Department. If you wish to speak to the department management, you may call the Director at [phone]. YOUR FOLLOW UP INSTRUCTIONS ARE FOLLOWS: 1. Do you have a private Doctor? If you do not have a private doctor, please ask for a resource list of physicians or clinics that may be able to assist you with follow up care. 2. The Emergency Physicain has interpreted your x-rays. The X-Ray specialist will also review them. If there is a change in the findings, you will be notified in 48 hours when at all possible. 3. A lab test or culture has been done, your results will be reviewed and you will be notified if you need a change in treatment. ADDITIONAL INSTRUCTIONS AND INFORMATION: 1. Your care today has been supervised by a physician who is specially trained in emergency care. Many problems require more than one evaluation for a complete diagnosis and treatment. We recommend that you schedule your follow up appointment as recommended to ensure complete treatment of you illness or injury. If you are unable to obtain follow up care and continue to have a problem, or if your condition worsens, we recommend that you return to the ED. 2. We are not able to safely determine your condition over the phone nor are we able to give sound medical advice over the phone. For these safety reasons, if you call for medical advice we will ask you to come to the ED for further evaluation. 3. If you have any questions regarding these discharge instructions please call the ED at [phone]. SAFETY INFORMATION: In the interest of safety, wellness, and injury prevention; we encourage you to wear your sealbelt, if you smoke; quite smoking, and we encourage family to use a protective helmet for bicycling and other sporting events that present an increased risk for head injury. IF YOUR SYMPTOMS WORSEN OR NEW SYMPTOMS DEVELOP, OR YOU HAVE CONCERNS ABOUT YOUR CONDITION; OR IF YOUR CONDITION WORSENS WHILE YOU ARE WAITING FOR YOUR FOLLOW UP APPOINTMENT; EITHER CONTACT YOUR PRIMARY CARE DOCTOR, THE PHYSICIAN WHOSE NAME AND NUMBER YOU WERE GIVEN, OR RETURN TO THE ED IMMEDIATELY. Scripts Benzonatate (TESSALON PERLE) 100 Mg Capsule 1 CAP PO TID for cough, #21 CAP Prov: ERIN CONKLIN DO 02/27/21 Albuterol Sulfate (Ventolin Hfa) 8 Gm Hfa.aer.ad 1 GM IH Q3-4HRS PRN for COUGH, #1 EACH Prov: ERIN CONKLIN DO 02/27/21 ERIN CONKLIN DO Feb 27, 2021 15:42
[2021-02-27 16:18] LABS: BASO % 0 % (0-3); EOS % 0 % (0-3); HEMATOCRIT 44.2 % (39.0-53.0); HEMOGLOBIN 15.2 g/dL (13.0-17.5); LYMPH # 0.9 x10^3/uL (1.0-4.8); LYMPH % 10 % (24-48); MEAN CORPUSCULAR HEMOGLOBIN 30 pg (25-35); MEAN CORPUSCULAR HGB CONC 34 g/dL (31-37); MEAN CORPUSCULAR VOLUME 88 fL (79-100); MONO # 0.3 x10^3/uL (0.0-1.1); MONO % 3 % (0-9); NEUT # 7.4 x10^3/uL (1.8-7.7); NEUT % 86 % (31-73); PLATELET COUNT 239 x10^3/uL (140-400); RED BLOOD COUNT 5.02 x10^6/uL (4.30-5.70); RED CELL DISTRIBUTION WIDTH 14.2 % (11.5-14.5); WHITE BLOOD COUNT 8.5 x10^3/uL (4.0-11.0)
[2021-02-27 16:24] LABS: CALCIUM 8.5 mg/dL (8.5-10.1); GFR 78.2; POTASSIUM 4.3 mmol/L (3.5-5.1)
[2021-02-27 16:30] LABS: ALBUMIN 3.4 g/dL (3.4-5.0); TOTAL BILIRUBIN 0.2 mg/dL (0.2-1.0); TOTAL PROTEIN 6.9 g/dL (6.4-8.2)
[2021-02-27 16:57] LABS: % BANDS 4 % (0-9); % LYMPHS 8 % (24-48); % MONOS 5 % (0-10); % SEGS 83 % (35-66)
[2021-02-27 16:58] LABS: PLT ESTIMATE ADEQUATE (ADEQUATE)
[2021-02-27] MEDS ORDERED: BENZ100C PO (17:56)
[2021-02-27] MEDS ORDERED: VENTOLIN HFA8 G1 IH (17:56)
[2021-02-27 18:12] VITALS: BP 135/67
--- NOTE | 2021-02-28 18:55 | EKG ---
[facility] [address] [place] [address] Test Date: 2021-02-27 Test Time: 14:44:36 Pat Name: WALKER ANTOINE Department: Room: Gender: [employer] Professional: : 1965 Requested By: ERIN CONKLIN Order Number: [id number] Reading MD: Measurements Intervals [place] Rate: 80 P: 36 SD: 156 QRS: 7 QRSD: 90 T: 29 QT: 368 QTc: 428 Interpretive Statements SINUS RHYTHM QRS(T) CONTOUR ABNORMALITY CONSIDER ANTEROLATERAL MYOCARDIAL DAMAGE POSSIBLY ABNORMAL ECG RI6.02 No previous ECG available for comparison
--- NOTE | 2021-03-01 10:21 | NUR ---
IP: Attempted to contact pt concerning covid results. No answer, left a voicemail to return the call.
--- NOTE | 2021-03-01 10:53 | NUR ---
IP: Pt returned my call. I informed pt of negative covid test. Pt verbalized understanding.
== END 2021-02-27 18:13 | disposition home or self-care (01) ==
LOC: ER 14:24
DX: J18.9 Pneumonia, unspecified organism (principal); Z20.822 Contact with and (suspected) exposure to COVID-19
CPT/HCPCS: 36415; 71045; 80053; 84484; 85007; 85025; 87426; 93005; 99284; U0003; U0005

== ENCOUNTER 2021-07-27 10:25 | Emergency (ER) | payer OTHER ==
[~2021-07-27] VITALS: Ht 188 cm; Wt 129.0 kg
[~2021-07-27 10:25] MED LIST changes: +CYCL10TA19 PO; -CYCL10TA2 PO; +VENTOLIN HFA8 G1 IH
[2021-07-27 10:48] VITALS: BP 127/85
[2021-07-27] MEDS ORDERED: ACETAMINOPHEN 500 MG TABLET PO ONE (11:00)
[2021-07-27] MEDS ORDERED: IBUPROFEN 200 MG TABLET. PO ONE (11:00)
--- NOTE | 2021-07-27 11:13 | RAD ---
XR CHEST 1V History: Reason: Cough, congestion, COVID positive / Spl. Instructions: / History: Comparison: February 27, 2021 Findings: Mild ill-defined mid and bibasilar opacities. Low lung volumes. No pleural effusion. No pneumothorax. Unchanged heart size. Impression: 1. Mild ill-defined opacities, can be seen with viral pneumonia. Electronically signed by: Chato Mcpherson DO (07/27/2021 11:11 AM) [id number]
--- NOTE | 2021-07-27 11:55 | PHYS DOC ---
Past Medical History Past Medical History: Bronchitis, CVA, Hypertension, Pneumonia Additional Past Medical Histor: CVA in 2007-no residual Past Surgical History: Knee Replacement, Other Additional Past Surgical Histo: R)ring finger from table saw injury,R)index fused; R shoulder Smoking Status: Never Smoker Alcohol Use: None Drug Use: None General Adult EDM: Chief Complaint: COUGH HPI: HPI: Patient is a 55-year-old male who presents to the emergency department concerning bilateral lower lateral rib discomfort with cough since having the COVID-19 virus. Patient reports he has been using his albuterol MDI and nebulizer machine at home, has been taking his doxycycline as directed by his primary care physician and has 2 days left of this regimen, has completed his prednisone regimen, continues to take cough syrup at home for his COVID-19 virus infection, patient reports he tested positive eight days ago. Denies worsening symptoms, reports he has ongoing rib discomfort with his cough. Patient denies taking [id number] pain relief medications. Reports taking his other home medications for high blood pressure. Patient denies anterior sternal chest discomfort, denies radiation of his rib pain when he does cough, reports he does feel short of breath with exertion however is not feeling worse since his treatment has been started by his primary care physician Dr. Sotelo. Patient denies any rib discomfort at rest, reports only elicits pain with cough, patient unable to articulate a pain scale number at this time. Patient denies other physical complaints or physical concerns. Review of Systems: Review of Systems: 14 body systems of review of systems have been reviewed. See HPI for pertinent positives and negative responses, otherwise all other systems are negative, nonpertinent or noncontributory. Constitutional: Negative except as outlined in HPI above. Skin: Negative except as outlined in HPI above. Eyes: Negative except as outlined in HPI above. HENT: Negative except as outlined in HPI above. Respiratory: Negative except as outlined in HPI above. Cardiovascular: Negative except as outlined in HPI above. GI: Negative except as outlined in HPI above. : Negative except as outlined in HPI above. Musculoskeletal: Negative except as outlined in HPI above. Integument: Negative except as outlined in HPI above. Neurologic: Negative except as outlined in HPI above. Endocrine: Negative except as outlined in HPI above. Lymphatic: Negative except as outlined in HPI above. Psychiatric: Negative except as outlined in HPI above. Heart Score: C/O Chest Pain: No Risk Factors: Risk Factors: DM, Current or recent (<one month) smoker, HTN, HLP, family history of CAD, obesity. Risk Scores: Score 0 - 3: 2.5% MACE over next 6 weeks - Discharge Home Score 4 - 6: 20.3% MACE over next 6 weeks - Admit for Clinical Observation Score 7 - 10: 72.7% MACE over next 6 weeks - Early Invasive Strategies Current Medications: Current Medications Medications (Trade) Dose Ordered Sig/Nely Start Time Stop Time Status Last Admin Dose Admin Acetaminophen (Tylenol) 1,000 mg 1X ONCE 07/27/21 11:00 07/27/21 11:01 DC 07/27/21 11:02 1,000 MG Ibuprofen (Motrin) 600 mg 1X ONCE 07/27/21 11:00 07/27/21 11:01 DC 07/27/21 11:02 600 MG Allergies: Allergies: Allergies Coded Allergies Type Severity Reaction Last Updated Verified No Known Drug Allergies 09/02/14 No Physical Exam: PE: Constitutional: Well developed, well nourished, no acute distress, non-toxic appearance. 55-year-old male in no apparent distress. HENT: Normocephalic, atraumatic. Eyes: Conjunctiva normal, no discharge. Neck: Normal range of motion, no stridor. Cardiovascular: No cyanosis appreciated, distal cap refill less than 2 seconds. Lungs & Thorax: Patient is in no respiratory distress, no audible adventitious lung sounds appreciated. No pain to palpation of the anterior lateral thorax. No subcu air appreciated, patient's O2 sat on room air is 97%, light expiratory wheezing upper lobes bilaterally, diminished lower lobes bilaterally. Normal work of breathing. Abdomen: Nontender, no abnormalities noted. Skin: Warm, dry, no erythema, no rash. Back: No tenderness, no deformities. Extremities: No tenderness, no cyanosis, no clubbing, ROM intact, no edema. Neurologic: Alert and oriented X 3, normal motor function, normal sensory function, no focal deficits noted. Psychologic: Affect normal, judgement normal, mood normal. Current Patient Data: Vital Signs: Vital Signs Date Time Temp Pulse Resp B/P (MAP) Pulse Ox O2 Delivery O2 Flow Rate FiO2 07/27/21 10:48 99.1 99 22 127/85 (99) 96 Room Air 99.1 EKG: EKG: [] Radiology/Procedures: Radiology/Procedures: STATUS: REG ER ORD. PHYSICIAN: EVY SINGLETON APRN REASON: Cough, congestion, COVID positive PROCEDURE: CHEST AP ONLY XR CHEST 1V History: Reason: Cough, congestion, COVID positive / Spl. Instructions: / History: Comparison: February 27, 2021 Findings: Mild ill-defined mid and bibasilar opacities. Low lung volumes. No pleural effusion. No pneumothorax. Unchanged heart size. Impression: 1. Mild ill-defined opacities, can be seen with viral pneumonia. Electronically signed by: Chato Mcpherson DO (07/27/2021 11:11 AM) [id number] Course & Med Decision Making: Course & Med Decision Making Pertinent Labs and Imaging studies reviewed. (See chart for details) 55-year-old male, vital signs reviewed, presents to the emergency department concerning bilateral rib discomfort with cough. Physical examination consistent with chest wall pain from coughing related to his COVID-19 virus infection. Patient is being treated by primary care with doxycycline and prednisone regimen, patient has not been taking [id number] NSAIDs or Tylenol for his aches and pains related to this viral infection. Discussed with patient will order chest x-ray, Tylenol and Motrin for rib discomfort. Patient's chest x-ray consistent with viral pneumonia, upon reevaluation of the patient, patient reports he is feeling much better since taking the Tylenol and Motrin in the ED today. Patient is requesting a refill of his albuterol MDI and nebulizer medication at home, will refill at discharge time, discussed with patient using [id number] Tylenol and Motrin for ongoing discomfort with this viral syndrome, reviewed return to emergency department precautions and concerns, follow-up with primary care for ongoing management of symptoms, patient gave verbal understanding of and is amenable to ED discharge planning. Discussed with the patient all findings and diagnostic testing as well as the need to follow-up with their primary care provider for further evaluation and treatment or return to the ED if any new or worsening symptoms. Strict return precautions were also discussed at length, the patient voiced understanding and agreement with the discharge planning. The patient was nontoxic in appearance, in no apparent distress, and hemodynamically stable at the time of disposition. Dragon Disclaimer: Dragon Disclaimer: This electronic medical record was generated, in whole or in part, using a voice recognition dictation system. Departure Departure Impression: Primary Impression: Rib pain Additional Impression: COVID-19 virus infection Disposition: HOME / SELF CARE / HOMELESS Condition: GOOD Referrals: LEILANI FLORENCE DO (PCP) Additional Instructions: You were seen today in the emergency department for rib pain with cough. You are currently being treated by your primary care physician for the COVID-19 virus. As we discussed, please use [id number] Tylenol and or Motrin for ongoing rib discomfort with your cough. Please continue all of your home medications as prescribed by your primary care doctor. You have requested a refill of your albuterol medications, I have sent these to your pharmacy of choice. As we discussed, please obtain a oxygen saturation machine at your pharmacy, monitor your oxygen saturation once daily, please return to the emergency department for sudden increase of shortness of breath, chest pains, heart oxygen saturation that is below 90%. Please follow-up with your primary care physician for ongoing COVID-19 virus management. Thank you for visiting our Emergency Department. It was a pleasure taking care of you today in the emergency department and we appreciate you trusting us with your care. If any additional problems come up don't hesitate to return to visit us. Please follow up with your primary care provider so they can plan additional care if needed and know about the problem that you had. If symptoms worsen come back to the Emergency Department. Any concerning symptoms that start such as chest pain, shortness of air, weakness or numbness on one side of the body, running high fevers or any other concerning symptoms return to the ER. You have been tested for or diagnosed with COVID-19. It is an infection caused by a new type of coronavirus. COVID-19 will cause cold-like or mild flu symptoms in most. It can cause more severe symptoms like problems breathing in some. There is no treatment for COVID-19. The body will clear the infection over time. Self-care will help to ease discomfort. Steps to Take: Self-Care Rest as needed. Healthy habits may help you feel better. Steps include: Choose healthy foods including fruits and vegetables. Drink water throughout the day. Get plenty of sleep each night. If you smoke, try to quit. It may ease breathing. Avoid alcohol. Keep Others Healthy The virus can spread to others. Droplets are released every time you sneeze or cough. The droplets can get into the mouth, nose, or eyes of people near you and lead to infection. To lower the chances of spreading COVID-19 to others: Stay at home until your doctor has said it is safe to leave. If you tested positive this will mean staying isolated until both of the following are true: At least 7 days have passed since the start of illness. You are free of fever for at least 72 hours without the use of medicine. During this time: - Avoid public areas, events, or transportation. Do not return to work or school until your doctor has said it is safe to do so. - Call ahead if you need to go to a medical center. Let them know you may have COVID-19. It will help them guide you where to go. They may also ask you to wear a facemask when you come to the office. - If you call for emergency medical services, let them know you may have COVID- 19. While at home: - Try to avoid close contact with others. Stay about 6 feet away. - If possible, spend most of your time in a separate room from others. - Use a face mask if you will be in close contact with others such as sharing a room or vehicle. - Have someone wipe down common surfaces in the home. Use household electric switch tester every day on areas like doorknobs, counters, or sinks. - Cough or sneeze into a tissue. Throw the tissue away right after use. If a tissue is not available, cough or sneeze into your elbow. - Wash your hands often. Wash them after sneezing or coughing. Use soap and water and wash for at least 20 seconds. Alcohol based hand hat cleaner can be used if soap and water is not available. - Do not prepare food for others. Avoid sharing personal items like forks, spoons, or toothbrushes. - Avoid close contact with pets while you are sick. There is no evidence of the virus passing to pets. This is a safety step until more is known about this virus. Isolation can be frustrating. Social interaction can help. Keep in touch with friends and family through phone and tech options. You can still interact with others in your home, just keep a safe distance of about 6 feet. Follow-up: Your doctors office will check in with you to see if there are any changes in your health. You may be asked to keep track of symptoms to share with them. They will also let you know when you are clear to be in public again. Problems to Look Out For: Contact your doctor if your recovery is not going as you expect. Get emergency care if you have problems such as: - Trouble breathing - Nonstop chest pain or pressure - Changes in awareness, confusion, or problems waking - Lips or face have bluish color - Worsening of symptoms If you think you have an emergency, call for emergency medical services right away. As taken from [facility] Albuterol Sulfate (ALBUTEROL SULFATE NEB SOLN) 2.5 Mg/3 Ml Vial.neb 1 VIAL NEB PRN Q4HRS for asthma, #50 VIAL Prov: EVY SINGLETON APRN 07/27/21 Albuterol Sulfate (PROAIR HFA INHALER) 8.5 Gm Hfa.aer.ad 2 PUFF IH PRN Q4-6HRS PRN for wheezing for 21 Days, #1 INHALER 0 Refills Prov: EVY SINGLETON APRN 07/27/21 EVY SINGLETON APRN Jul 27, 2021 11:55
[2021-07-27] MEDS ORDERED: ALBU2.5V5 NEB (12:02)
[2021-07-27] MEDS ORDERED: ALBU2.5V8 IH (12:02)
== END 2021-07-27 12:19 | disposition home or self-care (01) ==
LOC: ER 10:25
DX: U07.1 COVID-19 (principal); R07.81 Pleurodynia; I10 Essential (primary) hypertension; Z86.73 Personal history of transient ischemic attack (TIA), and cerebral infarction without residual deficits
CPT/HCPCS: 71045; 99283